=== PATIENT | female | born 1955 | race Caucasian/White ===

== ENCOUNTER → 2017-06-04 | Outpatient (CLI) | payer BC | END | disposition home or self-care (01) | LOC: CFH 16:19 | PROVIDERS: ATTEND Family Medicine | DX: M75.82 Other shoulder lesions, left shoulder (principal); E66.01 Morbid (severe) obesity due to excess calories ==

== ENCOUNTER → 2018-05-09 | Outpatient (CLI) | payer OTHER ==
[~2018-05-09] MED LIST: CANA1TAB4 PO; ESCI20TA PO; FENOFIBRATE PO; INSU100I34 SC; LEXAPRO PO; LIRA0.6P SC; LOSARTAN PO; LOVASTATIN PO; MUPI22OI2 NAS; PIOG30TA23 PO
[2018-05-09 12:58] LABS: BASOPHILS # (AUTO) 0.04 x10^3/uL (0-0.1); BASOPHILS % (AUTO) 1 % (0-1); EOSINOPHILS # (AUTO) 0.18 x10^3/uL (0-0.4); EOSINOPHILS % (AUTO) 2 % (1-7); LYMPHOCYTES # (AUTO) 2.88 x10^3/uL (1-3.4); LYMPHOCYTES % (AUTO) 38 % (22-44); MD NO; MEAN CORPUSCULAR HGB CONC 33.5 g/dL (32.4-35.8); MEAN CORPUSCULAR VOLUME 83.5 fL (80-100); MEAN PLATELET VOLUME 7.9 fL (7.4-10.4); MONOCYTES # (AUTO) 0.39 x10^3/uL (0.2-0.8); MONOCYTES % (AUTO) 5 % (2-9); NEUTROPHILS # (AUTO) 4.09 x10^3/uL (1.8-6.8); NEUTROPHILS % (AUTO) 54 % (42-75); PLATELET COUNT 289 x10^3/uL (130-400); RED BLOOD COUNT 5.66 x10^6/uL (3.82-5.3); RED CELL DISTRIBUTION WIDTH 14.9 % (9.6-15.2)
[2018-05-09 13:56] LABS: ALANINE AMINOTRANSFERASE 23 U/L (12-78); ALBUMIN 3.5 g/dL (3.4-5.0); ANION GAP 9 mmol/L (5-15); CALCIUM 9.6 mg/dL (8.5-10.1); CHLORIDE 105 mmol/L (98-107); CREATININE 0.62 mg/dL (0.55-1.02)
[2018-05-09 13:58] LABS: ALKALINE PHOSPHATASE 65 U/L (45-117); BILIRUBIN,TOTAL 0.7 mg/dL (0.2-1.0); TOTAL PROTEIN 7.1 g/dL (6.4-8.2)
[2018-05-09 14:05] LABS: CULTURE INDICATED? NO; MICROSCOPIC NOT IND
== END | disposition home or self-care (01) ==
LOC: STAR 11:40
PROVIDERS: ATTEND Orthopaedic Surgery
DX: Z01.818 Encounter for other preprocedural examination (principal); M17.11 Unilateral primary osteoarthritis, right knee; M25.561 Pain in right knee
CPT/HCPCS: 36415; 80053; 81003; 85025; 87081; 87147; 93005

== ENCOUNTER 2018-05-16 08:27 | Inpatient (IN) | payer OTHER ==
[2018-05-09 12:16] VITALS: BP 127/85
[~2018-05-16] VITALS: Ht 161.3 cm; Wt 131.3 kg
[~2018-05-16 08:27] MED LIST changes: -ESCI20TA PO; -MUPI22OI2 NAS
[2018-05-16] MEDS ORDERED: LACTATED RINGERS 1,000 ML IV SCH (09:56)
[2018-05-16] MEDS ORDERED: MIDAZOLAM 1 MG/ML, 2ML ONE (09:59)
[2018-05-16] MEDS ORDERED: FENTANYL PF 100 MCG/2ML ONE (09:59)
[2018-05-16] MEDS ORDERED: PROPOFOL 50 ML ONE (09:59)
[2018-05-16] MEDS ORDERED: TAMSULOSIN 0.4 MG CAP.ER.24H PO ONE (10:00)
[2018-05-16] MEDS ORDERED: GABAPENTIN 300 MG CAPSULE PO ONE (10:00)
[2018-05-16] MEDS ORDERED: ONDANSETRON ODT 8 MG PO ONE (10:00)
[2018-05-16] MEDS ORDERED: ACETAMINOPHEN 500 MG TABLET PO ONE (10:00)
[2018-05-16] MEDS ORDERED: SODIUM CHLORIDE 0.9% 100 ML ONE (10:40)
[2018-05-16] MEDS ORDERED: EPINEPHRINE 1 MG/ML, 1ML ONE (10:40)
[2018-05-16] MEDS ORDERED: KETOROLAC 60 MG/2 ML ONE (10:40)
[2018-05-16] MEDS ORDERED: TRANEXAMIC ACID 100 MG/ML, 10ML ONE (10:40)
[2018-05-16] MEDS ORDERED: ROPIvacaine/PF 0.2%, 20 ML ONE (10:40)
[2018-05-16] MEDS ORDERED: PHENYLEPHRINE 10 MG/ML ONE (10:57)
[2018-05-16] MEDS ORDERED: DEXAMETHASONE 4 MG/ML, 1ML ONE (10:57)
[2018-05-16] MEDS ORDERED: PROPOFOL 10 MG/ML, 20ML ONE (10:57)
[2018-05-16] MEDS ORDERED: CLINDAMYCIN 150 MG/ML, 6ML ONE (11:26)
[2018-05-16] MEDS ORDERED: LIDOCAINE-MPF 2% ,5ML ONE (11:59)
[2018-05-16] MEDS ORDERED: BUPIVACAINE/PF 0.5% ONE (11:59)
[2018-05-16] MEDS ORDERED: LABETALOL 5MG/ML, 20ML IV PRN (12:00)
[2018-05-16] MEDS ORDERED: SCOPOLAMINE PATCH, 1.5MG PATCH.TD72 TD PRN (12:00)
[2018-05-16] MEDS ORDERED: OXYcodone 5 MG/5 ML ORAL.SOL UDC PO PRN (12:00)
[2018-05-16] MEDS ORDERED: HYDROmorphone 1 MG/ML, 1ML IV PRN ×2 (12:00→13:00)
[2018-05-16] MEDS ORDERED: hydrALAzine 20 MG/ML, 1ML IV PRN (12:00)
[2018-05-16] MEDS ORDERED: PROMETHAZINE 25 MG SUPP PR PRN (12:00)
[2018-05-16] MEDS ORDERED: FENTANYL PF 100 MCG/2ML IV PRN (12:00)
[2018-05-16] MEDS ORDERED: ONDANSETRON 2MG/ML, 2ML IV PRN ×2 (12:00→13:00)
[2018-05-16] MEDS ORDERED: MIDAZOLAM 1 MG/ML, 2ML IV PRN (12:00)
[2018-05-16] MEDS ORDERED: ALBUTEROL/IPRATROPIUM 2.5MG/0.5MG, 3 ML NPPB PRN (12:00)
[2018-05-16] MEDS ORDERED: DIPHENHYDRAMINE 50 MG CAPSULE PO PRN (13:00)
[2018-05-16] MEDS ORDERED: ONDANSETRON 4 MG TABLET PO PRN (13:00)
[2018-05-16] MEDS ORDERED: SENNA/DOCUSATE TABLET PO PRN (13:00)
[2018-05-16] MEDS ORDERED: ALUMINUM/MAG/SIMETHICONE 30 ML UDC PO PRN (13:00)
[2018-05-16] MEDS ORDERED: PROMETHAZINE 25 MG/ML, 1ML IM PRN (13:00)
[2018-05-16] MEDS ORDERED: PROMETHAZINE 12.5 MG SUPP PR PRN (13:00)
[2018-05-16] MEDS ORDERED: ZOLPIDEM 5MG TABLET PO PRN (13:00)
[2018-05-16] MEDS ORDERED: BISACODYL 10 MG SUPP PR PRN (13:00)
[2018-05-16] MEDS ORDERED: MAGNESIUM HYDROXIDE 8%, 30ML UDC PO PRN (13:00)
[2018-05-16] MEDS ORDERED: TRANEXAMIC ACID 1,000 MG in SODIUM CHLORIDE 0.9% 100 ML IVPB ONE (13:15)
[2018-05-16 14:47] VITALS: BP 110/62
[2018-05-16] MEDS: INSULIN REGULAR 100 UNITS/ML, 3ML VIAL SQ-INSULIN SCH ×2 (15:59→21:00)
[2018-05-16] MEDS: SODIUM CHLORIDE 0.9% 1,000 ML IV SCH ×2 (15:59→20:48)
[2018-05-16] MEDS: OXYcodone IR 5MG TABLET PO PRN (17:11)
[2018-05-16 18:30] VITALS: BP 107/53
[2018-05-16] MEDS: ACETAMINOPHEN 500 MG TABLET PO SCH (18:30)
[2018-05-16] MEDS: ASPIRIN 81 MG TABLET EC PO SCH (18:30)
[2018-05-16] MEDS: CLINDAMYCIN PMX 900MG/50ML 50 ML IVPB SCH (18:30)
[2018-05-16] MEDS ORDERED: ESCI20TA PO (21:01)
[2018-05-16] MEDS ORDERED: MUPI22OI2 NAS (21:01)
[2018-05-16] MEDS ORDERED: FENOFIBRATE 145 MG TABLET PO SCH (21:30)
[2018-05-16] MEDS ORDERED: MUPIROCIN OINT 2%, 22GM NAS SCH (21:30)
[2018-05-16] MEDS ORDERED: LOSARTAN 50MG TABLET PO SCH (21:30)
[2018-05-16] MEDS ORDERED: INSULIN GLARGINE 100 UNITS/ML, PEN SQ-INSULIN SCH (21:30)
[2018-05-16] MEDS ORDERED: LEXAPRO 20 MG PO SCH (21:30)
[2018-05-16] MEDS ORDERED: LOVASTATIN 20 MG TABLET PO SCH (21:30)
[2018-05-16] MEDS: DIAZEPAM 5 MG TABLET PO PRN (21:42)
[2018-05-16] MEDS ORDERED: FENOFIBRATE 134MG HOMEMEDPO SCH (22:00)
[2018-05-16] MEDS: DOCUSATE 100 MG CAPSULE PO SCH (22:01)
[2018-05-16 23:50] VITALS: BP 110/59
[2018-05-17] MEDS: ACETAMINOPHEN 500 MG TABLET PO SCH ×2 (01:21→08:26)
[2018-05-17] MEDS: CLINDAMYCIN PMX 900MG/50ML 50 ML IVPB SCH (02:00)
[2018-05-17] MEDS: DIAZEPAM 5 MG TABLET PO PRN (02:00)
[2018-05-17 04:07] VITALS: BP 113/75
[2018-05-17] MEDS: SODIUM CHLORIDE 0.9% 1,000 ML IV SCH (04:48)
[2018-05-17] MEDS ORDERED: DEXAMETHASONE 4 MG/ML, 1ML IVPush SCH (06:00)
[2018-05-17] MEDS: ASPIRIN 81 MG TABLET EC PO SCH (06:11)
[2018-05-17] MEDS: INSULIN REGULAR 100 UNITS/ML, 3ML VIAL SQ-INSULIN SCH ×2 (07:00→11:00)
[2018-05-17 07:34] VITALS: BP 102/67
[2018-05-17] MEDS: DOCUSATE 100 MG CAPSULE PO SCH (08:26)
[2018-05-17] MEDS ORDERED: CANAGLIFLOZIN HOMEMEDPO SCH (09:00)
[2018-05-17] MEDS ORDERED: MUPIROCIN OINT 2%, 22GM NAS SCH (09:00)
[2018-05-17] MEDS ORDERED: [UNRECOGNIZED DRUG - OTHER] HOMEMEDPO SCH (09:00)
[2018-05-17] MEDS ORDERED: PIOGLITAZONE 15 MG TABLET PO SCH ×2 (09:00)
[2018-05-17] MEDS ORDERED: METFORMIN HCL HOMEMEDPO SCH (09:00)
[2018-05-17] MEDS ORDERED: MULTIVITAMINS/MINERALS TABLET PO SCH (09:00)
[2018-05-17] MEDS ORDERED: (Liraglutide (Victoza 2-Pak) 1.8 MG) SC SCH (09:00)
[2018-05-17] MEDS: OXYcodone IR 5MG TABLET PO PRN (11:26)
[2018-05-17 12:46] VITALS: BP 126/76
[2018-05-17] MEDS ORDERED: OXYC5CAP2 PO (13:26)
[2018-05-17] MEDS ORDERED: KETOROLAC 30 MG/1 ML IV SCH (17:00)
[2018-05-17] MEDS ORDERED: LEXAPRO 20 MG HOMEMEDPO SCH (21:00)
[2018-05-17] MEDS ORDERED: LOSARTAN 50MG TABLET PO SCH (21:00)
[2018-05-17] MEDS ORDERED: LOVASTATIN 20 MG TABLET PO SCH (21:00)
[2018-05-17] MEDS ORDERED: INSULIN GLARGINE 100 UNITS/ML, PEN SQ-INSULIN SCH (21:00)
[2018-05-17] MEDS ORDERED: TEMPLATE NON-FORMULARY CAPSULE HOMEMEDPO SCH (21:00)
[2018-05-17] MEDS ORDERED: TEMPLATE NON-FORMULARY MED. (Liraglutide (Victoza 2-Pak) 1.8 MG) SC SCH (23:00)
[2018-05-17] MEDS ORDERED: LIRAGLUTIDE 1.8 MG SC SCH (23:00)
== END 2018-05-17 13:40 | disposition home or self-care (01) | DRG 470 ==
LOC: OUT 08:27 → ORIP 12:48 → 4NOR 14:38 → DCLOUNGE 05-17 13:15
PROVIDERS: ADMIT Orthopaedic Surgery; ATTEND Orthopaedic Surgery
PROC: 3E0T3BZ Introduction of Anesthetic Agent into Peripheral Nerves and Plexi, Percutaneous Approach (ICD-10-PCS; 2018-05-16)
PROC: 0SRC069 Replacement of Right Knee Joint with Oxidized Zirconium on Polyethylene Synthetic Substitute, Cemented, Open Approach (ICD-10-PCS; principal; 2018-05-16 11:00)
DX: M17.11 Unilateral primary osteoarthritis, right knee (principal); Z68.43 Body mass index [BMI] 50.0-59.9, adult; E11.9 Type 2 diabetes mellitus without complications; Z60.2 Problems related to living alone; F32.9 Major depressive disorder, single episode, unspecified; E66.01 Morbid (severe) obesity due to excess calories; E78.5 Hyperlipidemia, unspecified; I10 Essential (primary) hypertension; Z79.4 Long term (current) use of insulin; Z87.891 Personal history of nicotine dependence; Z88.0 Allergy status to penicillin; Z88.5 Allergy status to narcotic agent; Z88.2 Allergy status to sulfonamides; Z88.8 Allergy status to other drugs, medicaments and biological substances; Z79.84 Long term (current) use of oral hypoglycemic drugs
CPT/HCPCS: 36415; 73560; S0077; 82962; 85014; 85018; C1713; G0378; J0171; J1100; J1885; J2250; J2704; J2795; J3010; J3490; Q0162; C1776; J2370; J7030

== ENCOUNTER 2018-05-17 22:37 | Emergency (ER) | payer OTHER ==
[~2018-05-17] VITALS: Ht 160 cm; Wt 125.0 kg
[~2018-05-17 22:37] MED LIST changes: +ESCI20TA PO; +MUPI22OI2 NAS; +OXYC5CAP2 PO
[2018-05-17] MEDS ORDERED: HYDROmorphone 1 MG/ML, 1ML IVPush PRN (23:00)
[2018-05-17] MEDS ORDERED: SODIUM CHLORIDE FLUSH 10ML SYR IVF ONE (23:00)
[2018-05-17] MEDS ORDERED: SODIUM CHLORIDE 0.9% 1,000ML IVBOLUS ONE (23:00)
[2018-05-17] MEDS ORDERED: ONDANSETRON 2MG/ML, 2ML IVPush ONE (23:00)
[2018-05-17] MEDS ORDERED: ONDANSETRON 2MG/ML, 2ML ONE (23:10)
[2018-05-17] MEDS ORDERED: HYDROmorphone 2 MG/ML, 1ML ONE (23:11)
[2018-05-17 23:24] LABS: MICROSCOPIC NOT IND
[2018-05-17 23:28] LABS: CULTURE INDICATED? NO
[2018-05-17] MEDS ORDERED: MORPHINE SULFATE 4 MG/ML, 1ML ONE (23:44)
[2018-05-17 23:47] LABS: BASOPHILS # (AUTO) 0.01 x10^3/uL (0-0.1); BASOPHILS % (AUTO) 0 % (0-1); EOSINOPHILS # (AUTO) 0.02 x10^3/uL (0-0.4); EOSINOPHILS % (AUTO) 1 % (1-7); LYMPHOCYTES # (AUTO) 0.37 x10^3/uL (1-3.4); LYMPHOCYTES % (AUTO) 9 % (22-44); MD NO; MEAN CORPUSCULAR HEMOGLOBIN 28.1 pg (27.0-34.8); MEAN CORPUSCULAR HGB CONC 34.1 g/dL (32.4-35.8); MEAN CORPUSCULAR VOLUME 82.5 fL (80-100); MEAN PLATELET VOLUME 7.7 fL (7.4-10.4); MONOCYTES # (AUTO) 0.25 x10^3/uL (0.2-0.8); MONOCYTES % (AUTO) 6 % (2-9); NEUTROPHILS # (AUTO) 3.69 x10^3/uL (1.8-6.8); NEUTROPHILS % (AUTO) 85 % (42-75); PLATELET COUNT 222 x10^3/uL (130-400); RED BLOOD COUNT 4.85 x10^6/uL (3.82-5.3)
[2018-05-18] LABS: ALANINE AMINOTRANSFERASE 21 U/L (12-78); ALBUMIN 3.1 g/dL (3.4-5.0); ANION GAP 9 mmol/L (5-15); CALCIUM 9.1 mg/dL (8.5-10.1); CHLORIDE 106 mmol/L (98-107); CREATININE 0.85 mg/dL (0.55-1.02)
[2018-05-18] MEDS ORDERED: MORPHINE SULFATE 4 MG/ML, 1ML IVPush ONE
[2018-05-18 00:05] LABS: ALKALINE PHOSPHATASE 55 U/L (45-117); BILIRUBIN,TOTAL 0.5 mg/dL (0.2-1.0); TOTAL PROTEIN 6.3 g/dL (6.4-8.2)
[2018-05-18 01:25] VITALS: BP 121/59
== END 2018-05-18 02:26 | disposition home or self-care (01) ==
LOC: ED 23:43
DX: M25.561 Pain in right knee (principal); R50.9 Fever, unspecified; I10 Essential (primary) hypertension; E11.9 Type 2 diabetes mellitus without complications; E78.5 Hyperlipidemia, unspecified; Z87.891 Personal history of nicotine dependence; Z96.651 Presence of right artificial knee joint
CPT/HCPCS: 36415; 71045; 73564; 80053; 81003; 83605; 84145; 85025; 85651; 86140; 87040; 93971; 96374; 96375; 99285; J2405; J7030

== ENCOUNTER 2019-07-03 12:35 | Outpatient (CLI) | payer OTHER ==
[2019-07-03] MEDS ORDERED: MIDAZOLAM 1 MG/ML, 5ML ONE ×2 (13:45)
[2019-07-03] MEDS ORDERED: NALOXONE 1 MG/ML, 2ML ONE (13:46)
[2019-07-03] MEDS ORDERED: FLUMAZENIL 0.1 MG/1 ML, 5ML ONE (13:46)
[2019-07-03] MEDS ORDERED: FENTANYL PF 100 MCG/2ML ONE (13:46)
== END 2019-07-03 23:59 | disposition home or self-care (01) ==
LOC: RAD 12:35
PROVIDERS: ATTEND Orthopaedic Surgery
DX: M48.061 Spinal stenosis, lumbar region without neurogenic claudication (principal); M47.896 Other spondylosis, lumbar region; M54.5 Low back pain; M46.47 Discitis, unspecified, lumbosacral region; M51.27 Other intervertebral disc displacement, lumbosacral region
CPT/HCPCS: 72148; 99156; 99157; J2250; J3010; J2310

== ENCOUNTER → 2020-04-24 | Outpatient (CLI) | payer OTHER ==
[~2020-04-24] MED LIST changes: +ESCI20TA10 PO; +FENO134C PO; +FLUC150T2 PO; +LOSA100T14 PO; +LOVA20TA2 PO; +SEMA0.25 INJ; +ciclopirox TD
[2020-04-24 15:34] LABS: BASOPHILS % (AUTO) 1 % (0-1); EOSINOPHILS % (AUTO) 3 % (1-7); LYMPHOCYTES % (AUTO) 41 % (22-44); MEAN CORPUSCULAR HEMOGLOBIN 26.2 pg (27.0-34.8); MEAN CORPUSCULAR HGB CONC 32.4 g/dL (32.4-35.8); MEAN PLATELET VOLUME 7.6 fL (7.4-10.4); MONOCYTES % (AUTO) 6 % (2-9); NEUTROPHILS % (AUTO) 49 % (42-75); PLATELET COUNT 261 x10^3/uL (130-400); RED CELL DISTRIBUTION WIDTH 16.2 % (9.6-15.2)
[2020-04-24 15:36] LABS: MICROSCOPIC NOT IND
[2020-04-24 15:37] LABS: MD NO
[2020-04-24 15:40] LABS: HCT (SEDRATE) 48.5 % (34.6-47.8)
[2020-04-24 15:44] LABS: INTERNATIONAL NORMALIZED RATIO 1.04 (0.93-1.1)
[2020-04-24 15:45] LABS: ALBUMIN 3.5 g/dL (3.4-5.0); ANION GAP 6 mmol/L (5-15); CALCIUM 9.4 mg/dL (8.5-10.1); CHLORIDE 113 mmol/L (98-107)
[2020-04-24 15:50] LABS: ALANINE AMINOTRANSFERASE 16 U/L (12-78); ALKALINE PHOSPHATASE 70 U/L (45-117); BILIRUBIN,TOTAL 0.9 mg/dL (0.2-1.0); CREATININE 0.61 mg/dL (0.55-1.02); TOTAL PROTEIN 7.2 g/dL (6.4-8.2)
== END | disposition home or self-care (01) ==
LOC: STAR 14:16
PROVIDERS: ATTEND Orthopaedic Surgery Orthopaedic Surgery of the Spine
DX: Z01.818 Encounter for other preprocedural examination (principal); M48.061 Spinal stenosis, lumbar region without neurogenic claudication; M43.16 Spondylolisthesis, lumbar region; I25.2 Old myocardial infarction
CPT/HCPCS: 36415; 71046; 80053; 80074; 81003; 85025; 85610; 85651; 85730; 87806; 93005; G0475

== ENCOUNTER → 2020-05-02 | Outpatient (CLI) | payer OTHER | END | disposition home or self-care (01) | LOC: STAR 14:12 | PROVIDERS: ATTEND Anesthesiology | DX: Z01.812 Encounter for preprocedural laboratory examination (principal); Z20.828 Contact with and (suspected) exposure to other viral communicable diseases | CPT/HCPCS: 36415; 87635 ==

== ENCOUNTER 2020-05-07 05:51 | Inpatient (IN) | payer OTHER ==
[~2020-05-07] VITALS: Ht 161.3 cm; Wt 133.0 kg
[2020-05-07] MEDS ORDERED: CHLORHEXIDINE 15 ML UDC MM ONE (06:03)
[2020-05-07] MEDS ORDERED: LACTATED RINGERS 1,000 ML IV ONE (06:03)
[2020-05-07] MEDS ORDERED: BUPIVACAINE/PF 0.5% ONE (06:06)
[2020-05-07] MEDS ORDERED: VANCOMYCIN 1,000 MG ONE (06:07)
[2020-05-07] MEDS ORDERED: morphine SULFATE/PF 0.5 MG/ML, 10ML ONE (06:07)
[2020-05-07] MEDS ORDERED: LIDOCAINE/PF 1%, 30ML ONE (06:07)
[2020-05-07] MEDS ORDERED: FENTANYL PF 100 MCG/2ML ONE ×2 (06:07→08:52)
[2020-05-07] MEDS ORDERED: EPINEPHRINE 1 MG/ML, 1ML ONE (06:07)
[2020-05-07] MEDS ORDERED: GENTAMICIN 80 MG/2 ML ONE (06:07)
[2020-05-07 06:08] VITALS: BP 131/89
[2020-05-07] MEDS ORDERED: BACITRACIN 50,000 UNIT ONE (06:08)
[2020-05-07] MEDS ORDERED: HEPARIN 1,000 UNITS/ML, 30ML ONE (06:16)
[2020-05-07] MEDS ORDERED: MIDAZOLAM 1 MG/ML, 2ML ONE (06:54)
[2020-05-07] MEDS ORDERED: FENTANYL PF 250 MCG/5ML ONE (06:55)
[2020-05-07] MEDS ORDERED: SCOPOLAMINE 1MG PATCH TD ONE ×2 (07:00)
[2020-05-07] MEDS ORDERED: PROPOFOL 250 ML ONE (07:05)
[2020-05-07] MEDS ORDERED: SUFentanil 50 MCG/ML, 2ML ONE ×2 (07:13→07:20)
[2020-05-07] MEDS ORDERED: CLINDAMYCIN 150 MG/ML, 6ML ONE (07:32)
[2020-05-07] MEDS ORDERED: ONDANSETRON 2MG/ML, 2ML ONE (07:36)
[2020-05-07] MEDS ORDERED: PHENYLEPHRINE 10 MG/ML ONE (07:36)
[2020-05-07] MEDS ORDERED: DEXAMETHASONE 4 MG/ML, 1ML ONE (07:36)
[2020-05-07] MEDS ORDERED: SUCCINYLCHOLINE 20 MG/ML, 10ML ONE (07:36)
[2020-05-07] MEDS ORDERED: EPHEDRINE 50 MG/ML, 1ML ONE (07:36)
[2020-05-07] MEDS ORDERED: LABETALOL 5MG/ML, 20ML IV PRN (09:30)
[2020-05-07] MEDS ORDERED: OXYcodone 5 MG/5 ML ORAL.SOL UDC PO PRN (09:30)
[2020-05-07] MEDS ORDERED: FENTANYL PF 100 MCG/2ML IV PRN (09:30)
[2020-05-07] MEDS ORDERED: MEPERIDINE/PF 25MG/0.5ML IVPush PRN (09:30)
[2020-05-07] MEDS ORDERED: KETOROLAC 30 MG/1 ML IV PRN (09:30)
[2020-05-07] MEDS ORDERED: PROMETHAZINE 25 MG/ML, 1ML IV PRN (09:30)
[2020-05-07] MEDS ORDERED: ALBUTEROL SULFATE 2.5 MG/3 ML NPPB PRN (09:30)
[2020-05-07] MEDS ORDERED: HYDROmorphone 2 MG/ML, 1ML IVPush PRN (09:30)
[2020-05-07] MEDS ORDERED: hydrALAzine 20 MG/ML, 1ML IV PRN (09:30)
[2020-05-07] MEDS ORDERED: DIAZEPAM 5 MG/ML, 2ML IVPush PRN (09:30)
[2020-05-07] MEDS ORDERED: ACETAMINOPHEN 325 MG TABLET PO PRN (09:30)
== END 2020-05-07 12:15 | disposition home or self-care (01) | DRG 552 ==
LOC: ORIP 05:51
PROVIDERS: ADMIT Orthopaedic Surgery Orthopaedic Surgery of the Spine; ATTEND Orthopaedic Surgery Orthopaedic Surgery of the Spine
PROC: 03HY32Z Insertion of Monitoring Device into Upper Artery, Percutaneous Approach (ICD-10-PCS; principal; 2020-05-07 07:00)
DX: M43.16 Spondylolisthesis, lumbar region (principal); Z68.43 Body mass index [BMI] 50.0-59.9, adult; M48.062 Spinal stenosis, lumbar region with neurogenic claudication; M48.07 Spinal stenosis, lumbosacral region; E66.01 Morbid (severe) obesity due to excess calories; Z96.651 Presence of right artificial knee joint; E78.5 Hyperlipidemia, unspecified; M54.16 Radiculopathy, lumbar region; I10 Essential (primary) hypertension; E11.9 Type 2 diabetes mellitus without complications; Z88.0 Allergy status to penicillin; Z88.2 Allergy status to sulfonamides; Z88.5 Allergy status to narcotic agent; Z88.6 Allergy status to analgesic agent; Z91.040 Latex allergy status; Z79.4 Long term (current) use of insulin; Z79.899 Other long term (current) drug therapy
CPT/HCPCS: 36415; 76000; J3490; S0020; S0077; 82962; 86850; 86900; 86923; 95938; 95941; J0171; J1100; J1644; J2250; J2274; J2405; J2704; J3010; J3370; J0330; J1580; J2370; J7120

== ENCOUNTER 2021-01-01 06:48 | Outpatient (CLI) | payer MEDICARE ==
[~2021-01-01 06:48] MED LIST changes: -ESCI20TA PO; +ESCI20TA8 PO
[2021-01-01] MEDS ORDERED: REGADENOSON 0.4 MG/5 ML SYRINGE ONE (07:33)
== END 2021-01-02 23:59 | disposition home or self-care (01) ==
LOC: CVU 06:48 → CFH 23:59
PROVIDERS: ATTEND Internal Medicine Cardiovascular Disease
DX: R94.31 Abnormal electrocardiogram [ECG] [EKG] (principal)
CPT/HCPCS: 78452; 93017; A9502; C8929; J2785; Q9957

== ENCOUNTER → 2021-02-21 | Outpatient (CLI) | payer MEDICARE ==
[~2021-02-21] MED LIST changes: +ATOR20TA37 PO; +CA C1TAB60 PO; +CHOL10003 PO; +SEMA0.25 SC; +ZYZAL PO; +[UNRECOGNIZED DRUG - OTHER] PO
[2021-02-21 11:33] LABS: BASOPHILS % (AUTO) 1 % (0-1); EOSINOPHILS % (AUTO) 2 % (1-7); LYMPHOCYTES % (AUTO) 37 % (22-44); MEAN CORPUSCULAR HEMOGLOBIN 27.9 pg (27.0-34.8); MEAN CORPUSCULAR HGB CONC 33.7 g/dL (32.4-35.8); MONOCYTES % (AUTO) 7 % (2-9); NEUTROPHILS % (AUTO) 53 % (42-75); PLATELET COUNT 251 x10^3/uL (130-400); RED BLOOD COUNT 5.73 x10^6/uL (3.82-5.3); RED CELL DISTRIBUTION WIDTH 15.3 % (9.6-15.2)
[2021-02-21 12:23] LABS: ANION GAP 8 mmol/L (5-15); CHLORIDE 106 mmol/L (98-107)
[2021-02-21 12:24] LABS: BILIRUBIN,TOTAL 0.9 mg/dL (0.2-1.0); CALCIUM 10.2 mg/dL (8.5-10.1); CREATININE 0.58 mg/dL (0.55-1.02); TOTAL IRON BINDING CAPACITY 436 mcg/dL (250-450); TRANSFERRIN 311 mg/dL (200-360)
[2021-02-21 12:25] LABS: ALANINE AMINOTRANSFERASE 14 U/L (12-78); ALBUMIN 3.7 g/dL (3.4-5.0); ALKALINE PHOSPHATASE 72 U/L (45-117); CHOL/HDL RATIO 2.4; CHOLESTEROL, TOTAL 101 mg/dL (140-239); HDL CHOL % 42 % (28-40); HDL CHOLESTEROL (DIRECT) 42 mg/dL (40-60); LDL CHOLESTEROL,CALCULATED 31 mg/dL (54-169); LDL/HDL RATIO 0.7 (0.5-3.0); PREALBUMIN 15.9 mg/dL (20.0-40.0); TOTAL PROTEIN 7.2 g/dL (6.4-8.2); TRIGLYCERIDES 142 mg/dL (50-200); VLDL CHOLESTEROL 28 mg/dL (0-25)
[2021-02-21 12:50] LABS: % IRON SATURATION 13 % (20-55); IRON LEVEL 58 mcg/dL (50-170)
== END | disposition home or self-care (01) ==
LOC: STAR 10:27
PROVIDERS: ATTEND Thoracic Surgery (Cardiothoracic Vascular Surgery)
DX: Z01.812 Encounter for preprocedural laboratory examination (principal); Z20.822 Contact with and (suspected) exposure to COVID-19; E66.01 Morbid (severe) obesity due to excess calories; I21.29 ST elevation (STEMI) myocardial infarction involving other sites
CPT/HCPCS: 36415; 71046; 80053; 80061; 82306; 82607; 82728; 82746; 83540; 83550; 83970; 84134; 84425; 84466; 85025; 93005; U0003; U0005

== ENCOUNTER 2021-02-26 09:44 | Inpatient (IN) | payer MEDICARE ==
[~2021-02-26] VITALS: Ht 161.3 cm; Wt 130.0 kg
[~2021-02-26 09:44] MED LIST changes: +BUPIVACAINE/PF 0.5% ONE; +EPINEPHRINE 1 MG/ML, 1ML ONE
[2021-02-26] MEDS ORDERED: FENTANYL PF 250 MCG/5ML ONE (09:54)
[2021-02-26] MEDS ORDERED: MIDAZOLAM 1 MG/ML, 2ML ONE (09:54)
[2021-02-26] MEDS ORDERED: CHLORHEXIDINE 15 ML UDC PO ONE (10:30)
[2021-02-26] MEDS ORDERED: LACTATED RINGERS 1,000 ML IV SCH (10:30)
[2021-02-26] MEDS ORDERED: SCOPOLAMINE 1MG PATCH TD ONE ×2 (10:38→11:00)
[2021-02-26] MEDS ORDERED: BUPIVACAINE/PF-EPI 0.5% 1:200K INFIL ONE (11:02)
[2021-02-26] MEDS ORDERED: GLYCOPYRROLATE 0.2MG/1ML, 5ML ONE (11:16)
[2021-02-26] MEDS ORDERED: LIDOCAINE-MPF 2% ,5ML ONE (11:16)
[2021-02-26] MEDS ORDERED: ROCURONIUM 10MG/ML,5ML ONE (11:16)
[2021-02-26] MEDS ORDERED: ONDANSETRON 2MG/ML, 2ML ONE (11:16)
[2021-02-26] MEDS ORDERED: PROPOFOL 10 MG/ML, 20ML ONE (11:16)
[2021-02-26] MEDS ORDERED: CEFAZOLIN 1,000 MG ONE (11:16)
[2021-02-26] MEDS ORDERED: NEOSTIGMINE 1 MG/ML, 10ML ONE (11:16)
[2021-02-26] MEDS ORDERED: SUGAMMADEX 200 MG/2 ML IVPush ONE ×2 (11:29)
[2021-02-26] MEDS ORDERED: MEPERIDINE/PF 25MG/0.5ML IVPush PRN (11:30)
[2021-02-26] MEDS ORDERED: OXYcodone 5 MG/5 ML ORAL.SOL UDC PO PRN (11:30)
[2021-02-26] MEDS ORDERED: ALBUTEROL SULFATE 2.5 MG/3 ML NPPB PRN (11:30)
[2021-02-26] MEDS ORDERED: METHOCARBAMOL 1,000 MG in DEXTROSE 5% 100 ML IV PRN (11:30)
[2021-02-26] MEDS ORDERED: LABETALOL 5MG/ML, 20ML IV PRN (11:30)
[2021-02-26] MEDS ORDERED: HYDROmorphone 1 MG/ML, 1ML INJ IVPush PRN (11:30)
[2021-02-26] MEDS ORDERED: PROMETHAZINE 25 MG/ML, 1ML IVPush PRN (11:30)
[2021-02-26] MEDS ORDERED: LORazepam 2 MG/ML, 1ML IV PRN (12:00)
[2021-02-26] MEDS ORDERED: DIPHENHYDRAMINE 50 MG/ML, 1ML IV PRN (12:00)
[2021-02-26] MEDS ORDERED: PROMETHAZINE 12.5 MG SUPP PR PRN (12:00)
[2021-02-26] MEDS ORDERED: METHOCARBAMOL 1,000 MG in DEXTROSE 5% 100 ML IV ONE (12:00)
[2021-02-26] MEDS ORDERED: ONDANSETRON 2MG/ML, 2ML IVPush PRN (12:00)
[2021-02-26] MEDS ORDERED: morphine SULFATE 10 MG/ML, 1ML IVPush PRN (12:00)
[2021-02-26] MEDS: LACTATED RINGERS 1,000 ML IV SCH ×2 (12:00→18:42)
[2021-02-26] MEDS ORDERED: ENALAPRILAT 1.25 MG/ML, 2ML IV PRN (12:00)
[2021-02-26] MEDS ORDERED: PHENOL THROAT SPRAY BOTTLE MM PRN (12:00)
[2021-02-26] MEDS: INSULIN REGULAR 100 UNITS/ML, 3ML VIAL SQ-INSULIN SCH ×3 (12:00→20:43)
[2021-02-26] MEDS ORDERED: PROMETHAZINE 25 MG/ML, 1ML IM PRN (12:00)
[2021-02-26] MEDS ORDERED: FENTANYL PF 100 MCG/2ML ONE (12:01)
[2021-02-26] MEDS ORDERED: LORazepam 2 MG/ML, 1ML ONE (12:02)
[2021-02-26] MEDS: FENTANYL PF 100 MCG/2ML IV PRN ×2 (12:04→12:41)
[2021-02-26] MEDS: LORazepam 2 MG/ML, 1ML IVPush PRN ×2 (12:06→12:28)
[2021-02-26] MEDS: ACETAMINOPHEN 100 ML IVPB SCH ×2 (12:30→18:31)
[2021-02-26] MEDS ORDERED: hydrALAzine 20 MG/ML, 1ML ONE (12:39)
[2021-02-26] MEDS: hydrALAzine 20 MG/ML, 1ML IVPush PRN ×2 (12:54→13:24)
[2021-02-26] MEDS ORDERED: PROMETHAZINE 25 MG/ML, 1ML ONE (13:13)
[2021-02-26] MEDS ORDERED: KETOROLAC 30 MG/1 ML IVPush PRN (18:00)
[2021-02-26] MEDS ORDERED: LABETALOL 5MG/ML, 20ML IVPush ONE (19:00)
[2021-02-26 19:05] VITALS: BP 131/81
[2021-02-26] MEDS: FAMOTIDINE 20 MG/2 ML IVPush SCH (20:43)
[2021-02-27 00:54] VITALS: BP 129/60
[2021-02-27] MEDS: LACTATED RINGERS 1,000 ML IV SCH ×2 (01:55→11:00)
[2021-02-27 04:50] VITALS: BP 130/64
[2021-02-27 05:23] LABS: BASOPHILS % (AUTO) 0 % (0-1); EOSINOPHILS % (AUTO) 0 % (1-7); LYMPHOCYTES % (AUTO) 24 % (22-44); MEAN CORPUSCULAR HEMOGLOBIN 27.7 pg (27.0-34.8); MEAN CORPUSCULAR HGB CONC 33.1 g/dL (32.4-35.8); MEAN PLATELET VOLUME 7.6 fL (7.4-10.4); MONOCYTES % (AUTO) 9 % (2-9); NEUTROPHILS % (AUTO) 67 % (42-75); PLATELET COUNT 278 x10^3/uL (130-400); RED BLOOD COUNT 5.41 x10^6/uL (3.82-5.3); RED CELL DISTRIBUTION WIDTH 15.4 % (9.6-15.2)
[2021-02-27 05:37] LABS: ANION GAP 12 mmol/L (5-15); CALCIUM 8.9 mg/dL (8.5-10.1); CHLORIDE 104 mmol/L (98-107)
[2021-02-27 05:40] LABS: CREATININE 0.58 mg/dL (0.55-1.02)
[2021-02-27] MEDS: HYDROcodone/APAP 7.5-325MG/15ML UDC PO PRN ×3 (06:17→15:26)
[2021-02-27] MEDS: INSULIN REGULAR 100 UNITS/ML, 3ML VIAL SQ-INSULIN SCH ×2 (06:20→11:00)
[2021-02-27 08:34] VITALS: BP_SYST 125; BP_SYST 129; BP_DIAS 75; BP_DIAS 82
[2021-02-27] MEDS ORDERED: ENOXAPARIN 40 MG/0.4 ML SQ SCH ×2 (09:00)
[2021-02-27] MEDS ORDERED: LOSARTAN 100 MG TAB PO SCH (09:00)
[2021-02-27] MEDS ORDERED: ATORVASTATIN 20 MG TABLET PO SCH (09:00)
[2021-02-27] MEDS ORDERED: HYDR15SO3 PO (09:19)
[2021-02-27] MEDS: FAMOTIDINE 20 MG/2 ML IVPush SCH (09:34)
[2021-02-27 12:20] VITALS: BP 112/59
== END 2021-02-27 18:35 | disposition home or self-care (01) | DRG 620 ==
LOC: ORIP 09:44 → 4NE 14:03
PROVIDERS: ADMIT Thoracic Surgery (Cardiothoracic Vascular Surgery); ATTEND Thoracic Surgery (Cardiothoracic Vascular Surgery)
PROC: 0DB64Z3 Excision of Stomach, Percutaneous Endoscopic Approach, Vertical (ICD-10-PCS; principal; 2021-02-26 11:30)
DX: E66.01 Morbid (severe) obesity due to excess calories (principal); E44.1 Mild protein-calorie malnutrition; Z68.43 Body mass index [BMI] 50.0-59.9, adult; Z71.3 Dietary counseling and surveillance; Z88.0 Allergy status to penicillin; Z88.2 Allergy status to sulfonamides; Z88.5 Allergy status to narcotic agent
CPT/HCPCS: 36415; 80048; 82040; 82962; 85025; G0378; J0131; J0171; J0690; J1650; J1815; J1885; J2250; J2405; J2550; J2704; J2710; J3010; J0360; J2060; J2800; J7120